=== PATIENT | male | born 1960 | race Caucasian/White ===

== ENCOUNTER → 2016-09-16 | Outpatient (CLI) | payer BC ==
[~2016-09-16] MED LIST: ASPI81TA28 PO; ATOR-24 PO; BISO5TAB3 PO; CYCL5TAB PO; FENO160T PO; FLUT0.15; GLC/500 PO; MIRA1TAB3 PO; OXYC-106 PO; PREG100C PO; SILO8CAP PO; TADA10TA PO; ZOLP10TA PO
--- NOTE | 2016-09-16 17:15 | DIAGNOSTIC IMAGING REPORT ---
[facility] CLINICAL HISTORY: CALCULUS OF KIDNEY COMPARISON STUDY: No previous studies for comparison. FINDINGS: There is mild fecal retention. The renal shadows are partially obscured overlying bowel gas and fecal material. No urinary tract calculi are visualized on conventional radiographic imaging IMPRESSION: No urinary tract calculi are visualized. Electronically signed by: Raf Bahena M.D. 09/16/2016 5:14 PM Dictated Date/Time: 09/16/2016 5:13 PM
== END | disposition home or self-care (01) ==
LOC: C.LAB 16:38
PROVIDERS: ATTEND Urology
DX: N39.0 Urinary tract infection, site not specified (principal); N20.0 Calculus of kidney